=== PATIENT | male | born 1970 | race Two or more races ===

== ENCOUNTER 2017-11-07 11:04 | Emergency (ER) | payer OTHER ==
[~2017-11-07] VITALS: Ht 172.7 cm; Wt 88.5 kg
[2017-11-07 11:20] VITALS: BP 144/85
--- NOTE | 2017-11-07 11:23 | Emergency Room Report ---
History of Present Illness General Chief Complaint: Chest Pain Source: Patient Present Illness HPI 46-year-old male walks in with chief complaint of headache and associated dizziness, with feeling like falling to one side since yesterday. Associated with chest pain, without shortness of breath, cough or fever or chills. Denies associated tinnitus, hearing loss. States she was treated for otitis media in the past, has tube placed and right ear. Has history of hypertension but denies other medical problems. Allergies: Coded Allergies: No Known Allergies (Unverified , 11/07/17) Patient History Past Medical History: HTN Past Surgical History: none Pertinent Family History: none Social History: Denies: smoking, alcohol use, drug use Immunizations: UTD Reviewed Nursing Documentation: PMH: Agreed Nursing Documentation-PMH Hx Hypertension: Yes Review of Systems All Other Systems: negative except mentioned in HPI Physical Exam Vital Signs Date Time Temp Pulse Resp B/P (MAP) Pulse Ox O2 Delivery O2 Flow Rate FiO2 11/07/17 11:14 98.0 78 16 130/80 95 Room Air 98.1 Sp02 EP Interpretation: reviewed, normal General Appearance: normal inspection, well appearing, no apparent distress, alert, GCS 15, non-toxic Head: normocephalic, atraumatic Eyes: bilateral eye PERRL, bilateral eye EOMI ENT: normal ENT inspection, hearing grossly normal, normal pharynx, no angioedema, normal voice, TMs + canals normal, uvula midline, moist mucus membranes Neck: normal inspection, full range of motion, supple, thyroid normal, no meningismus, no bony tend Respiratory: normal inspection, lungs clear, normal breath sounds, no rhonchi, no respiratory distress, no retraction, no accessory muscle use, no wheezing, speaking full sentences, other - Chest pain reproducible to chest Cardiovascular #1: regular rate, rhythm, no edema, no JVD, normal capillary refill Gastrointestinal: normal inspection, normal bowel sounds, non tender, soft, no mass, no peritonitis, non-distended, no guarding, no hernia, no pulsatile mass Genitourinary: no CVA tenderness Musculoskeletal: normal inspection, back normal, normal range of motion, no calf tenderness, pelvis stable, Leeann's Sign negative Neurologic: normal inspection, alert, oriented x3, responsive, 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 Trop 0. No metabolic abnormality. CP was reproducible headache/dizziness - Likely BPPV given right sided nystagmus, worse with movement - no focal neuro deficits - No cerebellar signs - Ct head: negative Headache, dizziness resolved with ativan Advised PMD referral to ENT ER course: Patient has remained stable during ED stay. Disposition: Patient is to be discharged to home. Prescriptions given are ativan Patient is instructed to follow up with their primary care doctor within 5 days. Patient is instructed to follow up with ENT in 7 days Strict return precautions discussed with patient such as fever, chills, worsening/severe pain, nausea, vomiting, which may indicate severe illness. Patient verbalizes understanding and agrees with plan. Please note that this Emergency Department Report was dictated using [employer] technology software, occasionally this can lead to erroneous entry secondary to interpretation by the dictation equipment EKG Diagnostic Results Rate: normal Rhythm: NSR ST Segments: no acute changes ASA given to the pt in ED: No Rhythm Strip Diag. Results EP Interpretation: yes Rate: 73 Rhythm: NSR, no PVC's, no ectopy Chest X-Ray Diagnostic Results Chest X-Ray Diagnostic Results : Chest X-Ray Ordered: Yes # of Views/Limited/Complete: 1 View Indication: Chest Pain EP Interpretation: Yes Interpretation: no consolidation, no effusion, no pneumothorax, no acute cardiopulmonary disease Impression: No acute disease Electronically Signed by: Dr Nani Mora mD Last Vital Signs Date Time Temp Pulse Resp B/P (MAP) Pulse Ox O2 Delivery O2 Flow Rate FiO2 11/07/17 11:14 98.0 78 16 130/80 95 Room Air 98.1 Status: improved Disposition: HOME, SELF-CARE Scripts Lorazepam* (ATIVAN*) 0.5 Mg Tablet 0.5 MG ORAL DAILY for vertigo for 7 Days, #7 TAB Prov: NANI MORA M.D. 11/07/17 NANI MORA M.D. Nov 07, 2017 11:22
[2017-11-07] MEDS ORDERED: LORazepam 0.5mg tab ORAL ONE (11:30)
[2017-11-07 11:55] LABS: ANION GAP 5 mmol/L (5-15); BLOOD UREA NITROGEN 12 mg/dL (7-18); CALCIUM 9.8 MG/DL (8.5-10.1); CARBON DIOXIDE 30 MMOL/L (21-32); CHLORIDE 106 MMOL/L (98-107); CREATININE 0.8 MG/DL (0.55-1.30); SODIUM 141 MMOL/L (136-145)
[2017-11-07 12:04] LABS: BASOPHILS % (AUTO) 0.9 % (0.0-2.0); EOSINOPHILS % (AUTO) 6.4 % (0.0-3.0); HEMATOCRIT 51.3 % (42.0-52.0); HEMOGLOBIN 17.4 G/DL (14.2-18.0); LYMPHOCYTES % (AUTO) 20.6 % (20.0-45.0); MEAN CORPUSCULAR VOLUME 85 FL (80-99); MONOCYTES % (AUTO) 8.6 % (1.0-10.0); NEUTROPHILS % (AUTO) 63.5 % (45.0-75.0); PLATELET COUNT 212 K/UL (150-450); RED BLOOD COUNT 6.04 M/UL (4.70-6.10); RED CELL DISTRIBUTION WIDTH 11.6 % (11.6-14.8); WHITE BLOOD COUNT 5.9 K/UL (4.8-10.8)
[2017-11-07 12:11] LABS: ALANINE AMINOTRANSFERASE 40 U/L (12-78); ALBUMIN 4.3 G/DL (3.4-5.0); ALBUMIN/GLOBULIN RATIO 1.3 (1.0-2.7); ALKALINE PHOSPHATASE 75 U/L (46-116); ASPARTATE AMINO TRANSFERASE 19 U/L (15-37); BILIRUBIN,TOTAL 0.9 MG/DL (0.2-1.0); CKMB 1.2 NG/ML (0.0-3.6)
[2017-11-07 12:35] VITALS: BP 135/80
[2017-11-07] MEDS ORDERED: ATIVAN0.5 MG ORAL (12:55)
[2017-11-07 13:02] VITALS: BP 135/80
--- NOTE | 2017-11-08 09:41 | Diagnostic Imaging Report ---
Indication: Headache Technique: Contiguous 5 mm thick transaxial imaging of the head obtained in a Siemens Sensation [address] scanner. Soft tissue and bone windows generated. Automatic Exposure Control was utilized. Total Dose length Product (DLP): 1383.[address] Dose Index Volume (CTDIvol): 70.38 mGy Comparison: none Findings: The size and configuration of the cortical sulci, basal cisterns, and ventricles are within normal limits for age. There is no mass effect, midline shift, or edema identified. There is no evidence of acute hemorrhage or abnormal intra-axial or extra-axial fluid collections. The bones and soft tissues are unremarkable. Impression: No mass effect, edema or acute bleed. The CT scanner at [facility] is accredited by the [employer] and the scans are performed using dose optimization techniques as appropriate to a performed exam including Automatic Exposure control.
--- NOTE | 2017-11-08 12:19 | Diagnostic Imaging Report ---
Indication: Dyspnea Comparison: None A single view chest radiograph was obtained. Findings: Cardiomediastinal appearance is within normal limits for age. Minimal left basal atelectasis versus scarring. Pulmonary vascularity is appropriate. The diaphragmatic contour is smooth and costophrenic angles are sharp. No pleural effusions are identified. The bones are unremarkable. Impression: No acute findings
--- NOTE | 2017-11-10 20:21 | Cardiology Report ---
APPROVED REPORT EKG Measurement Heart [id number] Sinus bradycardia Otherwise normal ECG
== END 2017-11-07 13:03 | disposition home or self-care (01) ==
LOC: EMR 11:41
DX: R07.89 Other chest pain (principal); R42 Dizziness and giddiness; R51 Headache; I10 Essential (primary) hypertension
CPT/HCPCS: 36415; 70450; 71045; 80053; 82553; 84484; 85025; 93005; 96374; 99284

== ENCOUNTER 2019-05-29 23:01 | Emergency (ER) | payer MEDICAID, OTHER ==
[~2019-05-29] VITALS: Ht 172.7 cm; Wt 87.1 kg
[~2019-05-29 23:01] MED LIST: ATIVAN0.5 MG ORAL
--- NOTE | 2019-05-29 23:45 | Emergency Room Report ---
History of Present Illness General Chief Complaint: Headache Source: Patient Present Illness HPI Patient presents with headache and right leg numbness. He is been diagnosed with a migraine and also with vertigo in the past. He states this feels like his migraine. He rates the pain 8/10 somewhat throbbing and constant. He is not taking any medication. Apparently was drinking heavily last night. He has slight nausea but no vomiting. He is moving his bowels normally without any melena or hematochezia. He denies any fevers or chills. There is slight amount of chest pressure and anxiety regarding what he feels at this time. He is also complaining of a strange feeling in his R knee area. He suggests it feels like the muscle is twitching and possibly some numbness. Denies trauma. No sore throat, palpitations, dysuria, abdominal pain, shortness of breath, joint pain, rashes, visual changes, headache. Patient denies head trauma, blood thinners, oncologic problems, IV drug use. Allergies: Coded Allergies: No Known Allergies (Unverified , 11/07/17) Patient History Past Medical History: see triage record Social History: Reports: alcohol use; Denies: smoking, drug use Social History Narrative Cook Reviewed Nursing Documentation: PMH: Agreed; PSxH: Agreed Nursing Documentation-PMH Hx Hypertension: Yes Review of Systems All Other Systems: negative except mentioned in HPI Physical Exam Vital Signs Date Time Temp Pulse Resp B/P (MAP) Pulse Ox O2 Delivery O2 Flow Rate FiO2 05/29/19 23:12 98.1 81 18 138/88 (105) 95 Room Air Sp02 EP Interpretation: reviewed, normal General Appearance: well appearing, no apparent distress, GCS 15 Head: normocephalic, atraumatic Eyes: right eye other - slight lid lag; bilateral eye normal inspection, bilateral eye PERRL, bilateral eye EOMI ENT: moist mucus membranes Neck: full range of motion, supple, tender lateral - right Respiratory: chest non-tender, lungs clear Cardiovascular #1: regular rate, rhythm Cardiovascular #2: 2+ radial (R) Gastrointestinal: normal inspection Musculoskeletal: gait/station normal Neurologic: alert, oriented x3, 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 Differential includes migraine, migraine variant, TIA, stroke, acute alcohol withdrawal amongst others. He recently had labs performed and these will be reviewed. There are no red flag symptoms and therefore CT of the head is not indicated.. He suggests this is like his migraine. He is requesting oral medication. He will be treated with Reglan, Benadryl and Motrin. Repeat neurologic exam indicated. Previous labs reviewed in detail. Headache resolved. Strange feeling in right knee is also resolved. Discussed outpatient observation with the patient and the need for follow-up. He was advised to return if he is not feeling well. Also advised to abstain from alcohol. No medical emergency at this time. Patient stable for outpatient observation and treatment. Last Vital Signs Date Time Temp Pulse Resp B/P (MAP) Pulse Ox O2 Delivery O2 Flow Rate FiO2 05/30/19 01:30 97.2 87 18 121/63 98 Room Air Status: improved Disposition: HOME, SELF-CARE Condition: Improved Scripts Ibuprofen* (MOTRIN*) 600 Mg Tablet 600 MG ORAL Q6H PRN for For Pain, #20 TAB 0 Refills Prov: Marcos Farris MD 05/30/19 Ondansetron Odt* (ZOFRAN ODT*) 4 Mg Tab.rapdis 4 MG BC EVERY 8 HOURS, #10 TAB 0 Refills Prov: Marcos Farris MD 05/30/19 Marcos Farris MD May 29, 2019 23:44
[2019-05-30 00:12] VITALS: BP 138/88
[2019-05-30] MEDS ORDERED: IBUPROFEN600 MG ORAL (01:22)
[2019-05-30] MEDS ORDERED: ONDANSETRON ODT4 MG BC (01:22)
[2019-05-30 01:30] VITALS: BP 121/63
== END 2019-05-30 01:30 | disposition home or self-care (01) ==
LOC: EMR 23:32
DX: R51 Headache (principal); R11.2 Nausea with vomiting, unspecified; I10 Essential (primary) hypertension
CPT/HCPCS: 99282